=== PATIENT | female | born 2000 | race Caucasian/White ===

== ENCOUNTER 2021-06-04 20:21 | Emergency (ER) | payer OTHER ==
[~2021-06-04] VITALS: Ht 165.1 cm; Wt 113.4 kg
[2021-06-05] MEDS ORDERED: IBUPROFEN800 MG PO (02:29)
[2021-06-05] MEDS ORDERED: MUCINEX1200 MG PO (02:29)
== END 2021-06-05 04:31 | disposition home or self-care (01) ==
LOC: ER1 20:21
DX: Z23 Encounter for immunization (principal); U07.1 COVID-19; J40 Bronchitis, not specified as acute or chronic; Z88.2 Allergy status to sulfonamides; F17.290 Nicotine dependence, other tobacco product, uncomplicated
CPT/HCPCS: 99284; M0243